=== PATIENT | female | born 1980 | race African-American/Black ===

== ENCOUNTER 2016-06-24 10:54 | Emergency (ER) | payer BC ==
--- NOTE | ~2016-06-24 | CT55 ---
[facility] A Service of [facility] RADIOLOGY TEXT RESULTS PATIENT: NIR WEI LOCATION: [facility] : 84 UNIT #: [id number] AGE: [address]: Dione Sullivan MD SEX: F ORDER DR: [id number] [facility] [address] [place], [place] [address] [id number] E MR#: [id number] Acc #: [id number] NAME: NIR WEI : 1980 SEX: F STUDY DATE/TIME: 06/24/2016 15:12 UNIT: [facility] ROOM: STUDY DESCRIPTION: CT Chest W Con Attending Physician: Dione Sullivan M.D. Ordering Physician: Isacc Kennedy M.D. Primary Care Physician: Nathanael Hi M.D. MEDICAL IMAGING REPORT This report is preliminary unless electronic signature is present EXAM CT scan of the chest with contrast, 06/24/2016. HISTORY Chest pain since 06/23/2016. TECHNIQUE Patient was given 100 mL of Isovue-370, and axial 5-mm images were obtained through the chest. This CT exam was performed with one or more of the following radiation dose reduction techniques: automatic exposure control, adjustment of mA and/or kV according to patient size, and iterative reconstruction. FINDINGS The visualized portions of the upper abdomen are normal. The bones are unremarkable. The visualized thyroid gland is normal. The aorta is normal in size. There is no dissection. The lungs are clear. IMPRESSION Normal CT scan of the chest with contrast. This not a PE study of the chest, but I do not see any evidence of large pulmonary embolus. The aorta is normal without dissection. Dictated by... Josue Kimbrough M.D. THIS IS AN ELECTRONICALLY VERIFIED REPORT Josue Kimbrough M.D. at 06/25/2016 7:15 AM ROSELYN/neptali TD: 06/24/2016 17:12 [facility] A Service of [facility] RADIOLOGY TEXT RESULTS PATIENT: NIR WEI LOCATION: [facility] : 82 UNIT #: [id number] AGE: [address]: Dione Sullivan MD SEX: F ORDER DR: JOB #: [id number] MEDICAL IMAGING REPORT Page 1 of 1 COPY
--- NOTE | ~2016-06-24 | EKG ---
PATIENT: NIR WEI UNIT #: [id number] Ventricular Rate: 63 BPM Atrial Rate: 63 BPM P-R Interval: 176 ms QRS Duration: 78 ms Q-T Interval: 424 ms QTC Calculation(Bezet): 433 ms P Ridge: 31 degrees Calculated R Ridge: -14 degrees Calculated T Ridge: -11 degrees Diagnosis Line: Normal sinus rhythm Diagnosis Line: Minimal voltage criteria for LVH, may be normal Diagnosis Line: variant Diagnosis Line: T wave abnormality, consider inferior ischemia Diagnosis Line: Borderline ECG Diagnosis Line: No previous ECGs available Diagnosis Line: Confirmed by EDDY MONTES MD ([id number]) on 06/25/2016 Diagnosis Line: 10:01:04 AM INTERPRETING MD: JYOTI BURNETT
--- NOTE | ~2016-06-24 | EKG ---
PATIENT: NIR WEI UNIT #: [id number] Ventricular Rate: 53 BPM Atrial Rate: 53 BPM P-R Interval: 182 ms QRS Duration: 72 ms Q-T Interval: 448 ms QTC Calculation(Bezet): 420 ms P Sheffield: 19 degrees Calculated R Sheffield: -10 degrees Calculated T Sheffield: -12 degrees Diagnosis Line: Sinus bradycardia Diagnosis Line: Minimal voltage criteria for LVH, may be normal Diagnosis Line: variant Diagnosis Line: Otherwise normal ECG Diagnosis Line: No previous ECGs available Diagnosis Line: Confirmed by EDDY MONTES MD ([id number]) on 06/25/2016 Diagnosis Line: 10:01:23 AM INTERPRETING MD: JYOTI BURNETT
--- NOTE | ~2016-06-24 | CR72 ---
[facility] A Service of [facility] RADIOLOGY TEXT RESULTS PATIENT: NIR WEI LOCATION: [facility] : 84 UNIT #: [id number] AGE: [address]: Dione Sullivan MD SEX: F ORDER DR: [id number] [facility] [address] [place], [place] [address] [id number] E MR#: [id number] Acc #: [id number] NAME: NIR WEI : 1980 SEX: F STUDY DATE/TIME: 06/24/2016 11:38 UNIT: [facility] ROOM: STUDY DESCRIPTION: CR Chest Single View Portable Attending Physician: Dione Sullivan M.D. Ordering Physician: Ed Doctor [id number] [facility] Primary Care Physician: Nathanael Hi M.D. MEDICAL IMAGING REPORT This report is preliminary unless electronic signature is present EXAM Chest portable 06/24/2016 1138 hours HISTORY 35-year-old woman complaining of chest pain since yesterday. COMPARISON None. FINDINGS Portable upright chest demonstrates normal cardiac, mediastinal and hilar contours. The lungs are well expanded and clear. There is no effusion or pneumothorax. No bone lesion. IMPRESSION Normal upright portable chest film. Dictated by... Deborah Adams M.D. THIS IS AN ELECTRONICALLY VERIFIED REPORT Deborah Adams M.D. at 06/24/2016 2:28 PM HOSEA/aida TD: 06/24/2016 12:26 JOB #: [id number] MEDICAL IMAGING REPORT Page 1 of 1 COPY
[~2016-06-24 10:54] MED LIST: ORUDIS75 M1 PO; TYLENOL #3 PO
[2016-06-24 11:27] LABS: POC - CKMB <1.0 ng/mL (0.0-7.9); POC - TROPONIN <0.05 ng/mL (<=0.05)
[2016-06-24 11:42] LABS: BASOPHIL# 0.1 X10e3 (0-0.3); EOSINOPHIL# 0.3 X10e3 (0-0.7); EOSINOPHIL% 4.9 % (0.0-7.0); HEMATOCRIT 37.6 % (35.0-45.0); HEMOGLOBIN 11.8 gm/dL (12.0-16.0); LYMPHOCYTE# 1.9 X10e3 (1.0-3.5); LYMPHOCYTE% 28.2 % (17.0-45.0); MEAN CELL VOLUME 72.9 FL (83-96); MEAN CORPUSCULAR HEMOGLOBIN 22.9 PG (28-34); MEAN CORPUSCULAR HGB CONC 31.4 g/dL (30-36); MEAN PLATELET VOLUME 8.1 FL (6.5-11.5); MONOCYTE# 0.5 X10e3 (0-1.0); MONOCYTE% 7.3 % (3.0-12.0); NEUTROPHIL# 3.9 X10e3 (1.5-7.1); NEUTROPHIL% 58.6 % (40-75); PLATELET COUNT 269 X10e3 (140-420); RED BLOOD COUNT 5.16 X10e (3.90-5.30); RED CELL DISTRIBUTION WIDTH 16.3 % (11.0-15.5); WHITE BLOOD COUNT 6.7 X10e3 (4.0-10.5)
[2016-06-24 11:47] LABS: DIFF IND NO
[2016-06-24 11:55] LABS: PARTIAL THROMBOPLASTIN TIME 29.4 SECONDS (23.5-31.3); PROTHROMBIN TIME (PATIENT) 10.8 SECONDS (9.6-11.5)
[2016-06-24 12:11] LABS: BILIRUBIN, DIRECT 0.1 mg/dL (0.0-0.2); BILIRUBIN,INDIRECT 0.7 mg/dL (0.0-0.9); BILIRUBIN,TOTAL 0.8 mg/dL (0.2-2.0); BUN/CREATININE RATIO 13.33; CREATININE SERUM 0.6 mg/dL (0.6-1.4); GLOM FILT RATE Estimated 138.8 mL/min (>60); POTASSIUM 3.8 mmol/L (3.5-5.1); PROTEIN TOTAL SERUM 7.1 g/dL (6.0-8.3)
[2016-06-24 13:02] LABS: POC - CKMB <1.0 ng/mL (0.0-7.9); POC - TROPONIN <0.05 ng/mL (<=0.05)
== END 2016-06-24 17:36 | disposition home or self-care (01) ==
LOC: CED 10:54
PROVIDERS: Emergency Medicine
DX: K21.9 Gastro-esophageal reflux disease without esophagitis (principal); Z98.890 Other specified postprocedural states; Z91.030 Bee allergy status
CPT/HCPCS: 36415; 71010; 71260; 80048; 80076; 82553; 84484; 84703; 85025; 85379; 85610; 85730; 93005; 96361; 96374; 96375; 99284; J2405; Q9967